=== PATIENT | male | born 1945 | race African-American/Black ===

== ENCOUNTER 2019-05-09 20:29 | Inpatient (IN) | payer OTHER ==
[~2019-05-09] VITALS: Ht 162.6 cm; Wt 60.8 kg
[~2019-05-09 20:29] MED LIST: ALLO300T2 PO; CALC-823 PO; FAMO20TA8 PO; FURO-150 PO; NAPR-690 PO; NOR10 PO; OMEP20CA11 PO; OXYC15TA88 PO; POTA10TA15 PO; TAMS-11 PO
[2019-05-09 20:47] VITALS: BP_SYST 100
[2019-05-09] MEDS ORDERED: NACL 0.9% 1,000 ML IV ONE (21:44)
[2019-05-09] MEDS ORDERED: TIMO5DRO16 EACH EYE (22:17)
[2019-05-09] MEDS ORDERED: MORP15TA PO (22:17)
[2019-05-09] MEDS ORDERED: IBUP-1971 PO (22:17)
[2019-05-09] MEDS ORDERED: COLC0.6T67 PO (22:17)
[2019-05-09] MEDS ORDERED: ASPIRIN 81 MG TAB.CHEW PO ONE (22:45)
[2019-05-09 23:07] LABS: BASOPHILS # (AUTO) 0.1 K/uL (0.0-0.2); BASOPHILS % (AUTO) 0.5 % (0.0-2.0); EOSINOPHILS % (AUTO) 0.1 % (0.0-4.0); HEMATOCRIT 32.7 % (36-54); HEMOGLOBIN 10.6 g/dL (14.0-18.0); LYMPHOCYTES # (AUTO) 1.1 K/uL (1.0-5.5); LYMPHOCYTES % (AUTO) 8.2 % (20.5-51.5); MEAN CORPUSCULAR HEMOGLOBIN 27 pg (27-31); MEAN CORPUSCULAR HGB CONC 33 % (32-36); MEAN CORPUSCULAR VOLUME 82 fL (79.0-98.0); MONOCYTES # (AUTO) 0.9 K/uL (0.0-1.0); MONOCYTES % (AUTO) 6.4 % (1.7-9.3); NEUTROPHILS # (AUTO) 11.8 K/uL (1.8-7.7); NEUTROPHILS % (AUTO) 84.8 % (40.0-70.0); PLATELET COUNT (AUTO) 199 K/uL (130-430); RED BLOOD CELL COUNT(AUTO) 3.98 MIL/uL (4.2-6.2); RED CELL DISTRIBUTION WIDTH 22.7 % (9.0-15.0); WHITE BLOOD COUNT (AUTO) 13.9 K/uL (4.8-10.8)
[2019-05-09 23:21] LABS: GLUCOSE 102 mg/dL (70-99)
[2019-05-09 23:24] LABS: INR 1.2 (0.80-1.20); PROTHROMBIN TIME 12.3 SECS (9.5-12.5)
[2019-05-09 23:27] LABS: ALANINE AMINOTRANSFERASE 18 U/L (12-78); ALBUMIN 2.9 g/dL (3.4-4.8); ASPARTATE AMINOTRANSFERASE 36 U/L (10-37); TOTAL BILIRUBIN 0.9 mg/dL (0.0-1.0)
[2019-05-09 23:35] LABS: ANION GAP 20 (5-15); CHLORIDE 99 mmol/L (98-107); POTASSIUM 5.6 mmol/L (3.5-5.1); SODIUM SERUM 131 mmol/L (136-145); UREA NITROGEN, BLOOD 71 mg/dL (8-21)
[2019-05-09 23:37] LABS: ALCOHOL, BLOOD < 3 mg/dL (<10); CALCIUM 7.2 mg/dL (8.4-11.0)
[2019-05-09 23:59] LABS: BILIRUBIN,URINE NEGATIVE (NEGATIVE); BLOOD, URINE 2+ (NEGATIVE); CLARITY/URINE CLOUDY (CLEAR); COLOR,URINE YELLOW (YELLOW); GLUCOSE,URINE NEGATIVE (NEGATIVE); KETONES,URINE NEGATIVE (NEGATIVE); LEUKOCYTE ESTERASE ,URINE 2+ (NEGATIVE); NITRITE, URINE NEGATIVE (NEGATIVE); PH,URINE 5.5 (5.0-8.0); PROTEIN URINE 2+ (NEGATIVE); UROBILINOGEN,URINE 0.2 (0.2-1.0)
[2019-05-10 00:08] LABS: BACTERIA,URINE MANY /HPF (None Seen); WBC,URINE >100 /HPF (0-3)
[2019-05-10 00:09] LABS: MUCUS,URINE 2+ /LPF (None Seen)
[2019-05-10 00:10] LABS: BARBITURATE, URINE NEGATIVE (NEG <=200); BENZODIAZEPINE, URINE NEGATIVE (NEG <=150); CANNABINOID, URINE NEGATIVE (NEG <=50); COCAINE, URINE NEGATIVE (NEG <=150); METHAMPHETAMINES SCREEN,URINE NEGATIVE (NEG <=500); OPIATE, URINE POSITIVE (NEG <=100); PHENCYCLIDINE SCREEN,URINE NEGATIVE (NEG <=25); UR TRICYCLIC ANTIDEPRESSANTS NEGATIVE (NEG <=300); URINE AMPHETAMINE NEGATIVE (NEG <=500); URINE METHADONE NEGATIVE (NEG <=200); URINE OXYCODONE SCREEN POSITIVE (NEG <=100); URINE PROPOXYPHENE SCREEN NEGATIVE (NEG <=300)
[2019-05-10] MEDS ORDERED: LEVOFLOXACIN 500 MG/D5W 100 ML IV ONE (00:30)
[2019-05-10 01:35] VITALS: BP_SYST 106
[2019-05-10] MEDS ORDERED: D5/0.45 NS 1,000 ML IV SCH (02:00)
[2019-05-10] MEDS ORDERED: GENTAMICIN 120 mg/100 mL NS 100 ML IV ONE ×2 (02:00→03:02)
[2019-05-10 07:56] VITALS: BP_SYST 91
[2019-05-10] MEDS ORDERED: GENTAMICIN 80 MG/50 ML IV SCH (09:00)
[2019-05-10] MEDS ORDERED: NS IV SCH (09:00)
[2019-05-10 09:10] LABS: BASOPHILS # (AUTO) 0.1 K/uL (0.0-0.2); BASOPHILS % (AUTO) 0.5 % (0.0-2.0); EOSINOPHILS % (AUTO) 0.1 % (0.0-4.0); HEMATOCRIT 30.4 % (36-54); HEMOGLOBIN 9.8 g/dL (14.0-18.0); LYMPHOCYTES # (AUTO) 0.7 K/uL (1.0-5.5); LYMPHOCYTES % (AUTO) 4.9 % (20.5-51.5); MEAN CORPUSCULAR HEMOGLOBIN 27 pg (27-31); MEAN CORPUSCULAR HGB CONC 32 % (32-36); MEAN CORPUSCULAR VOLUME 83 fL (79.0-98.0); MONOCYTES # (AUTO) 1.3 K/uL (0.0-1.0); MONOCYTES % (AUTO) 8.7 % (1.7-9.3); NEUTROPHILS # (AUTO) 12.6 K/uL (1.8-7.7); NEUTROPHILS % (AUTO) 85.8 % (40.0-70.0); PLATELET COUNT (AUTO) 175 K/uL (130-430); RED BLOOD CELL COUNT(AUTO) 3.64 MIL/uL (4.2-6.2); RED CELL DISTRIBUTION WIDTH 22.9 % (9.0-15.0); WHITE BLOOD COUNT (AUTO) 14.7 K/uL (4.8-10.8)
[2019-05-10 09:37] LABS: ANION GAP 19 (5-15); CHLORIDE 103 mmol/L (98-107); GLUCOSE 114 mg/dL (70-99); POTASSIUM 5.1 mmol/L (3.5-5.1); SODIUM SERUM 131 mmol/L (136-145); UREA NITROGEN, BLOOD 81 mg/dL (8-21)
[2019-05-10 09:41] LABS: ALANINE AMINOTRANSFERASE 16 U/L (12-78); ALBUMIN 2.5 g/dL (3.4-4.8); ASPARTATE AMINOTRANSFERASE 26 U/L (10-37); TOTAL BILIRUBIN 0.6 mg/dL (0.0-1.0)
[2019-05-10 09:59] LABS: CALCIUM 6.9 mg/dL (8.4-11.0)
[2019-05-10 12:28] VITALS: BP_SYST 107
[2019-05-10] MEDS: SODIUM BICARBONATE 8.4% VIAL 150 MEQ in D5W 1,000 ML IV SCH (15:49)
[2019-05-10 16:42] VITALS: BP_SYST 114
[2019-05-10] MEDS: CEFEPIME 1 GM in D5W 50 ML IV SCH (18:11)
[2019-05-10 19:50] VITALS: BP_SYST 107
[2019-05-10] MEDS: FAMOTIDINE 20 MG TABLET PO SCH (20:31)
[2019-05-11] VITALS: BP_SYST 112
[2019-05-11] MEDS: SODIUM BICARBONATE 8.4% VIAL 150 MEQ in D5W 1,000 ML IV SCH ×3 (00:35→23:24)
[2019-05-11 06:44] LABS: BASOPHILS % (AUTO) 0.1 % (0.0-2.0); EOSINOPHILS % (AUTO) 0.4 % (0.0-4.0); HEMOGLOBIN 7.5 g/dL (14.0-18.0); LYMPHOCYTES # (AUTO) 0.6 K/uL (1.0-5.5); LYMPHOCYTES % (AUTO) 6.7 % (20.5-51.5); MEAN CORPUSCULAR HEMOGLOBIN 27 pg (27-31); MEAN CORPUSCULAR HGB CONC 35 % (32-36); MEAN CORPUSCULAR VOLUME 79 fL (79.0-98.0); MONOCYTES # (AUTO) 1.2 K/uL (0.0-1.0); MONOCYTES % (AUTO) 13.3 % (1.7-9.3); NEUTROPHILS # (AUTO) 7.2 K/uL (1.8-7.7); NEUTROPHILS % (AUTO) 79.5 % (40.0-70.0); PLATELET COUNT (AUTO) 146 K/uL (130-430); RED BLOOD CELL COUNT(AUTO) 2.73 MIL/uL (4.2-6.2); RED CELL DISTRIBUTION WIDTH 22.2 % (9.0-15.0)
[2019-05-11 07:12] LABS: ALANINE AMINOTRANSFERASE 18 U/L (12-78); ALBUMIN 1.9 g/dL (3.4-4.8); ANION GAP 16 (5-15); ASPARTATE AMINOTRANSFERASE 13 U/L (10-37); CALCIUM 7.3 mg/dL (8.4-11.0); CHLORIDE 105 mmol/L (98-107); CREATININE 2.38 mg/dL (0.55-1.30); GLUCOSE 95 mg/dL (70-99); POTASSIUM 3.5 mmol/L (3.5-5.1); SODIUM SERUM 138 mmol/L (136-145); TOTAL BILIRUBIN 0.4 mg/dL (0.0-1.0); UREA NITROGEN, BLOOD 66 mg/dL (8-21)
[2019-05-11 07:20] LABS: HEMATOCRIT 21.6 % (36-54)
[2019-05-11 08:00] VITALS: BP_SYST 106
[2019-05-11] MEDS: TIMOLOL MALEATE 0.25% OPHTHALMIC DROPS 5 ML EACH EYE SCH (08:27)
[2019-05-11] MEDS: ALLOPURINOL 300 MG TABLET (ZYLOPRIM) PO SCH (08:27)
[2019-05-11] MEDS: FAMOTIDINE 20 MG TABLET PO SCH ×2 (08:27→22:02)
[2019-05-11] MEDS: TAMSULOSIN HCL 0.4 MG CAP PO SCH (08:27)
[2019-05-11] MEDS: COLCHICINE 0.6 MG TABLET PO SCH (08:27)
[2019-05-11 12:55] VITALS: BP_SYST 101
[2019-05-11 17:18] VITALS: BP_SYST 128
[2019-05-11] MEDS: CEFEPIME 1 GM in D5W 50 ML IV SCH (17:47)
[2019-05-11] MEDS: ACETAMINOPHEN 500 MG TABLET PO PRN (17:47)
[2019-05-11 19:30] VITALS: BP_SYST 114
[2019-05-12] VITALS: BP_SYST 119
[2019-05-12 05:46] LABS: ANION GAP 10 (5-15); CHLORIDE 105 mmol/L (98-107); CREATININE 1.41 mg/dL (0.55-1.30); GLUCOSE 114 mg/dL (70-99); SODIUM SERUM 137 mmol/L (136-145); UREA NITROGEN, BLOOD 35 mg/dL (8-21)
[2019-05-12 05:58] LABS: CALCIUM 6.8 mg/dL (8.4-11.0); POTASSIUM 2.3 mmol/L (3.5-5.1)
[2019-05-12 06:27] LABS: BASOPHILS % (AUTO) 0.4 % (0.0-2.0); EOSINOPHILS # (AUTO) 0.1 K/uL (0.0-0.4); EOSINOPHILS % (AUTO) 0.8 % (0.0-4.0); HEMATOCRIT 30.5 % (36-54); HEMOGLOBIN 10.5 g/dL (14.0-18.0); LYMPHOCYTES # (AUTO) 0.6 K/uL (1.0-5.5); LYMPHOCYTES % (AUTO) 7.7 % (20.5-51.5); MEAN CORPUSCULAR HEMOGLOBIN 28 pg (27-31); MEAN CORPUSCULAR HGB CONC 34 % (32-36); MONOCYTES # (AUTO) 0.8 K/uL (0.0-1.0); MONOCYTES % (AUTO) 9.7 % (1.7-9.3); NEUTROPHILS # (AUTO) 6.6 K/uL (1.8-7.7); NEUTROPHILS % (AUTO) 81.4 % (40.0-70.0); PLATELET COUNT (AUTO) 143 K/uL (130-430); RED BLOOD CELL COUNT(AUTO) 3.77 MIL/uL (4.2-6.2); RED CELL DISTRIBUTION WIDTH 20.1 % (9.0-15.0); WHITE BLOOD COUNT (AUTO) 8.2 K/uL (4.8-10.8)
[2019-05-12 06:59] LABS: MEAN CORPUSCULAR VOLUME 81 fL (79.0-98.0)
[2019-05-12] MEDS ORDERED: POTASSIUM CHLORIDE 40 MEQ in NS 250 ML IV ONE (07:00)
[2019-05-12] MEDS ORDERED: POTASSIUM CHLORIDE 20 MEQ TAB.PRT.SR PO ONE ×2 (07:45→15:00)
[2019-05-12] MEDS: FAMOTIDINE 20 MG TABLET PO SCH ×2 (08:41→21:15)
[2019-05-12] MEDS: ALLOPURINOL 300 MG TABLET (ZYLOPRIM) PO SCH (08:41)
[2019-05-12] MEDS: TAMSULOSIN HCL 0.4 MG CAP PO SCH (08:41)
[2019-05-12] MEDS: COLCHICINE 0.6 MG TABLET PO SCH (08:41)
[2019-05-12] MEDS: oxyCODONE HCL 5 MG TABLET PO PRN ×3 (08:42→21:14)
[2019-05-12] MEDS: TIMOLOL MALEATE 0.25% OPHTHALMIC DROPS 5 ML EACH EYE SCH (09:00)
[2019-05-12 12:15] VITALS: BP_SYST 119
[2019-05-12] MEDS: SODIUM BICARBONATE 8.4% VIAL 150 MEQ in D5W 1,000 ML IV SCH ×2 (15:21→23:21)
[2019-05-12] MEDS: metroNIDAZOLE 250 mg/NS 50 ML IV SCH ×2 (16:11→21:14)
[2019-05-12 17:04] VITALS: BP_SYST 124
[2019-05-12] MEDS: CEFEPIME 1 GM in D5W 50 ML IV SCH (17:16)
[2019-05-12 20:00] VITALS: BP_SYST 124
[2019-05-12 23:40] VITALS: BP_SYST 144
[2019-05-13] MEDS: metroNIDAZOLE 250 mg/NS 50 ML IV SCH ×3 (04:44→21:28)
[2019-05-13] MEDS: SODIUM BICARBONATE 8.4% VIAL 150 MEQ in D5W 1,000 ML IV SCH (04:45)
[2019-05-13 07:25] LABS: BASOPHILS % (AUTO) 0.3 % (0.0-2.0); EOSINOPHILS % (AUTO) 0.6 % (0.0-4.0); HEMATOCRIT 30.7 % (36-54); HEMOGLOBIN 10.5 g/dL (14.0-18.0); MEAN CORPUSCULAR HEMOGLOBIN 28 pg (27-31); MEAN CORPUSCULAR HGB CONC 34 % (32-36); MEAN CORPUSCULAR VOLUME 82 fL (79.0-98.0); MONOCYTES # (AUTO) 0.9 K/uL (0.0-1.0); MONOCYTES % (AUTO) 13.5 % (1.7-9.3); NEUTROPHILS # (AUTO) 4.7 K/uL (1.8-7.7); NEUTROPHILS % (AUTO) 70.6 % (40.0-70.0); PLATELET COUNT (AUTO) 143 K/uL (130-430); RED BLOOD CELL COUNT(AUTO) 3.75 MIL/uL (4.2-6.2); RED CELL DISTRIBUTION WIDTH 19.2 % (9.0-15.0); WHITE BLOOD COUNT (AUTO) 6.7 K/uL (4.8-10.8)
[2019-05-13 07:41] LABS: ANION GAP 4 (5-15); CALCIUM 7.8 mg/dL (8.4-11.0); CHLORIDE 101 mmol/L (98-107); CREATININE 1.03 mg/dL (0.55-1.30); GLUCOSE 109 mg/dL (70-99); SODIUM SERUM 137 mmol/L (136-145); UREA NITROGEN, BLOOD 14 mg/dL (8-21)
[2019-05-13 07:44] LABS: POTASSIUM 2.4 mmol/L (3.5-5.1)
[2019-05-13] MEDS: TAMSULOSIN HCL 0.4 MG CAP PO SCH (07:50)
[2019-05-13] MEDS: oxyCODONE HCL 5 MG TABLET PO PRN ×3 (07:50→23:19)
[2019-05-13] MEDS: COLCHICINE 0.6 MG TABLET PO SCH (07:51)
[2019-05-13] MEDS: ALLOPURINOL 300 MG TABLET (ZYLOPRIM) PO SCH (07:52)
[2019-05-13] MEDS: FAMOTIDINE 20 MG TABLET PO SCH ×2 (07:52→21:28)
[2019-05-13] MEDS: TIMOLOL MALEATE 0.25% OPHTHALMIC DROPS 5 ML EACH EYE SCH (07:54)
[2019-05-13 08:00] VITALS: BP_SYST 141
[2019-05-13] MEDS ORDERED: KCL 40 mEq in 100 mL (PREMIX) 100 ML IV ONE (08:45)
[2019-05-13] MEDS ORDERED: POTASSIUM CHLORIDE 20 MEQ TAB.PRT.SR PO ONE (08:45)
[2019-05-13] MEDS ORDERED: POTASSIUM CHLORIDE 40 MEQ in NS 250 ML IV ONE (09:30)
[2019-05-13] MEDS: ACETAMINOPHEN 500 MG TABLET PO PRN ×2 (12:09→17:32)
[2019-05-13 14:52] LABS: BASOPHILS % (AUTO) 0.4 % (0.0-2.0); EOSINOPHILS % (AUTO) 0.6 % (0.0-4.0); HEMATOCRIT 33.8 % (36-54); HEMOGLOBIN 11.3 g/dL (14.0-18.0); LYMPHOCYTES # (AUTO) 0.9 K/uL (1.0-5.5); LYMPHOCYTES % (AUTO) 13.2 % (20.5-51.5); MEAN CORPUSCULAR HEMOGLOBIN 28 pg (27-31); MEAN CORPUSCULAR HGB CONC 34 % (32-36); MEAN CORPUSCULAR VOLUME 82 fL (79.0-98.0); MONOCYTES # (AUTO) 0.9 K/uL (0.0-1.0); MONOCYTES % (AUTO) 12.3 % (1.7-9.3); NEUTROPHILS # (AUTO) 5.2 K/uL (1.8-7.7); NEUTROPHILS % (AUTO) 73.5 % (40.0-70.0); PLATELET COUNT (AUTO) 153 K/uL (130-430); RED BLOOD CELL COUNT(AUTO) 4.11 MIL/uL (4.2-6.2); RED CELL DISTRIBUTION WIDTH 19.1 % (9.0-15.0); WHITE BLOOD COUNT (AUTO) 7.1 K/uL (4.8-10.8)
[2019-05-13 15:22] VITALS: BP_SYST 126
[2019-05-13] MEDS: CEFEPIME 1 GM in D5W 50 ML IV SCH (17:30)
[2019-05-13 19:54] LABS: ANION GAP 5 (5-15); CALCIUM 7.8 mg/dL (8.4-11.0); CHLORIDE 102 mmol/L (98-107); CREATININE 1.08 mg/dL (0.55-1.30); GLUCOSE 113 mg/dL (70-99); POTASSIUM 3.4 mmol/L (3.5-5.1); SODIUM SERUM 138 mmol/L (136-145); UREA NITROGEN, BLOOD 13 mg/dL (8-21)
[2019-05-13 20:00] VITALS: BP_SYST 143
[2019-05-14 00:08] VITALS: BP_SYST 152
[2019-05-14] MEDS: metroNIDAZOLE 250 mg/NS 50 ML IV SCH ×3 (06:26→20:14)
[2019-05-14 07:36] LABS: BASOPHILS % (AUTO) 0.2 % (0.0-2.0); EOSINOPHILS % (AUTO) 0.6 % (0.0-4.0); HEMATOCRIT 31.9 % (36-54); HEMOGLOBIN 10.7 g/dL (14.0-18.0); LYMPHOCYTES % (AUTO) 12.8 % (20.5-51.5); MEAN CORPUSCULAR HEMOGLOBIN 28 pg (27-31); MEAN CORPUSCULAR HGB CONC 34 % (32-36); MEAN CORPUSCULAR VOLUME 83 fL (79.0-98.0); MONOCYTES # (AUTO) 0.7 K/uL (0.0-1.0); MONOCYTES % (AUTO) 9.2 % (1.7-9.3); NEUTROPHILS # (AUTO) 6.2 K/uL (1.8-7.7); NEUTROPHILS % (AUTO) 77.2 % (40.0-70.0); PLATELET COUNT (AUTO) 144 K/uL (130-430); RED BLOOD CELL COUNT(AUTO) 3.83 MIL/uL (4.2-6.2); WHITE BLOOD COUNT (AUTO) 8.1 K/uL (4.8-10.8)
[2019-05-14 07:56] LABS: ALANINE AMINOTRANSFERASE 19 U/L (12-78); ALBUMIN 2.2 g/dL (3.4-4.8); ANION GAP 7 (5-15); ASPARTATE AMINOTRANSFERASE 15 U/L (10-37); CALCIUM 7.9 mg/dL (8.4-11.0); CHLORIDE 100 mmol/L (98-107); CREATININE 1.15 mg/dL (0.55-1.30); GLUCOSE 86 mg/dL (70-99); SODIUM SERUM 136 mmol/L (136-145); TOTAL BILIRUBIN 0.4 mg/dL (0.0-1.0); UREA NITROGEN, BLOOD 11 mg/dL (8-21)
[2019-05-14] MEDS: FAMOTIDINE 20 MG TABLET PO SCH ×2 (08:12→20:13)
[2019-05-14] MEDS: oxyCODONE HCL 5 MG TABLET PO PRN ×3 (08:12→23:16)
[2019-05-14] MEDS: ALLOPURINOL 300 MG TABLET (ZYLOPRIM) PO SCH (08:12)
[2019-05-14] MEDS: TAMSULOSIN HCL 0.4 MG CAP PO SCH (08:12)
[2019-05-14] MEDS: TIMOLOL MALEATE 0.25% OPHTHALMIC DROPS 5 ML EACH EYE SCH (09:00)
[2019-05-14] MEDS: COLCHICINE 0.6 MG TABLET PO SCH (09:00)
[2019-05-14 11:22] VITALS: BP_SYST 134
[2019-05-14 15:04] VITALS: BP_SYST 92
[2019-05-14] MEDS ORDERED: POTASSIUM CHLORIDE 20 MEQ/PKT PACKET PO ONE (16:30)
[2019-05-14] MEDS: CEFEPIME 1 GM in D5W 50 ML IV SCH (16:46)
[2019-05-14 19:00] VITALS: BP_SYST 146
[2019-05-14 20:00] VITALS: BP_SYST 146
[2019-05-15] VITALS: BP_SYST 135
[2019-05-15] MEDS: metroNIDAZOLE 250 mg/NS 50 ML IV SCH ×3 (05:53→21:15)
[2019-05-15] MEDS: FAMOTIDINE 20 MG TABLET PO SCH ×2 (07:49→21:15)
[2019-05-15] MEDS: oxyCODONE HCL 5 MG TABLET PO PRN ×2 (07:49→16:42)
[2019-05-15] MEDS: TAMSULOSIN HCL 0.4 MG CAP PO SCH (07:49)
[2019-05-15] MEDS: ALLOPURINOL 300 MG TABLET (ZYLOPRIM) PO SCH (07:49)
[2019-05-15 07:57] LABS: BASOPHILS % (AUTO) 0.4 % (0.0-2.0); EOSINOPHILS # (AUTO) 0.1 K/uL (0.0-0.4); EOSINOPHILS % (AUTO) 1.3 % (0.0-4.0); HEMATOCRIT 33.2 % (36-54); HEMOGLOBIN 10.9 g/dL (14.0-18.0); LYMPHOCYTES # (AUTO) 1.1 K/uL (1.0-5.5); LYMPHOCYTES % (AUTO) 14.1 % (20.5-51.5); MEAN CORPUSCULAR HEMOGLOBIN 28 pg (27-31); MEAN CORPUSCULAR HGB CONC 33 % (32-36); MEAN CORPUSCULAR VOLUME 84 fL (79.0-98.0); MONOCYTES # (AUTO) 0.5 K/uL (0.0-1.0); MONOCYTES % (AUTO) 6.7 % (1.7-9.3); NEUTROPHILS % (AUTO) 77.5 % (40.0-70.0); PLATELET COUNT (AUTO) 157 K/uL (130-430); RED BLOOD CELL COUNT(AUTO) 3.94 MIL/uL (4.2-6.2); RED CELL DISTRIBUTION WIDTH 19.6 % (9.0-15.0); WHITE BLOOD COUNT (AUTO) 7.8 K/uL (4.8-10.8)
[2019-05-15 08:10] LABS: ANION GAP 7 (5-15); CALCIUM 8.1 mg/dL (8.4-11.0); CHLORIDE 102 mmol/L (98-107); CREATININE 1.17 mg/dL (0.55-1.30); GLUCOSE 87 mg/dL (70-99); POTASSIUM 3.6 mmol/L (3.5-5.1); SODIUM SERUM 138 mmol/L (136-145); UREA NITROGEN, BLOOD 13 mg/dL (8-21)
[2019-05-15] MEDS: COLCHICINE 0.6 MG TABLET PO SCH (09:00)
[2019-05-15] MEDS: TIMOLOL MALEATE 0.25% OPHTHALMIC DROPS 5 ML EACH EYE SCH (09:00)
[2019-05-15 11:15] VITALS: BP_SYST 108
[2019-05-15 15:27] VITALS: BP_SYST 111
[2019-05-15] MEDS: CEFEPIME 1 GM in D5W 50 ML IV SCH (16:42)
[2019-05-15 20:33] VITALS: BP_SYST 121
[2019-05-15] MEDS: ACETAMINOPHEN 500 MG TABLET PO PRN (21:31)
[2019-05-16] VITALS: BP_SYST 112
[2019-05-16] MEDS: metroNIDAZOLE 250 mg/NS 50 ML IV SCH ×2 (05:12→14:00)
[2019-05-16] MEDS: TIMOLOL MALEATE 0.25% OPHTHALMIC DROPS 5 ML EACH EYE SCH (08:58)
[2019-05-16] MEDS: ALLOPURINOL 300 MG TABLET (ZYLOPRIM) PO SCH (08:59)
[2019-05-16] MEDS: oxyCODONE HCL 5 MG TABLET PO PRN ×4 (08:59→16:39)
[2019-05-16] MEDS: COLCHICINE 0.6 MG TABLET PO SCH (08:59)
[2019-05-16] MEDS: FAMOTIDINE 20 MG TABLET PO SCH (09:00)
[2019-05-16] MEDS: TAMSULOSIN HCL 0.4 MG CAP PO SCH (09:00)
[2019-05-16 12:22] VITALS: BP_SYST 142
[2019-05-16] MEDS ORDERED: CEFU250T85 PO (15:32)
[2019-05-16 16:20] VITALS: BP_SYST 142
[2019-05-16 17:25] VITALS: BP_SYST 142
== END 2019-05-16 17:45 | disposition home or self-care (01) | DRG 871 ==
LOC: SED 20:29 → STU 05-10 00:36
PROVIDERS: ADMIT Family Medicine; ATTEND Family Medicine
PROC: 30233N1 Transfusion of Nonautologous Red Blood Cells into Peripheral Vein, Percutaneous Approach (ICD-10-PCS; principal; 2019-05-11)
DX: A41.9 Sepsis, unspecified organism (principal); G92 Toxic encephalopathy; E43 Unspecified severe protein-calorie malnutrition; R40.2343 Coma scale, best motor response, flexion withdrawal, at hospital admission; N17.9 Acute kidney failure, unspecified; N39.0 Urinary tract infection, site not specified; E87.2 Acidosis; K57.92 Diverticulitis of intestine, part unspecified, without perforation or abscess without bleeding; E86.0 Dehydration; I12.9 Hypertensive chronic kidney disease with stage 1 through stage 4 chronic kidney disease, or unspecified chronic kidney disease; N18.9 Chronic kidney disease, unspecified; M19.90 Unspecified osteoarthritis, unspecified site; K21.9 Gastro-esophageal reflux disease without esophagitis; D64.9 Anemia, unspecified; G89.29 Other chronic pain; M10.9 Gout, unspecified; E83.51 Hypocalcemia; E87.6 Hypokalemia; M41.9 Scoliosis, unspecified; N40.0 Benign prostatic hyperplasia without lower urinary tract symptoms; Z68.23 Body mass index [BMI] 23.0-23.9, adult; Z79.899 Other long term (current) drug therapy; Z88.0 Allergy status to penicillin; Z98.42 Cataract extraction status, left eye; Z98.41 Cataract extraction status, right eye; Z87.81 Personal history of (healed) traumatic fracture
CPT/HCPCS: 36415; 70450-TC; 71045; 76770; 80048; 80053; 80307; 81000-TC; 82272; 83605; 83735-TC; 83880; 84484; 85025; 85610-TC; 85730-TC; 86710; 86886; 86900; 86901; 86920; 87040-TC; 87086; 87186-TC; 93005; 93306; 96360; 97110-GP; 97530-GP; 99285; G0378; G0482; J0692; J1580; J1956; J3480; J3490; J7030; J7040; J7050; J7060; P9021